=== PATIENT | female | born 1970 | race American Indian/Alaskan Native ===

== ENCOUNTER 2017-06-28 17:27 | Emergency (ER) | payer SELFPAY ==
[2017-06-28 17:46] VITALS: BP 136/84
--- NOTE | 2017-06-28 19:04 | Emergency Department Report ---
ED ENT HPI - General Chief complaint: Sore Throat Stated complaint: SORE THROAT Time Seen by Provider: 06/28/17 18:38 Source: patient Mode of arrival: Ambulatory Limitations: No Limitations - History of Present Illness Initial comments: This is a 46-year-old female nontoxic, well nourished in appearance, no acute signs of distress presents to the ED with c/o of foreign body sensation in her throat x3 weeks. Patient stated that at times she feels like her throat is closing. Patient denies any fever, chills, headache, stiff neck, nausea, vomiting, chest pain, shortness of breath, numbness or tingling. Patient denies any drooling or hoarseness. Patient stated allergies to PCN and lidocaine. PMH includes DM. MD complaint: sore throat -: week(s) (3) Location: throat Severity: mild Severity scale (0 -10): 8 Quality: aching Consistency: constant Improves with: none Worsens with: swallowing Associated Symptoms: pain with swallowing, sore throat. denies: fever, cough, gum swelling, toothache, tinnitus, hearing loss, discharge from ear, rhinorrhea - Related Data Previous Rx's Medication Instructions Recorded Last Taken Type Ibuprofen [Motrin] 600 mg PO Q8H PRN #30 tablet 06/28/17 Unknown Rx Allergies Allergy/AdvReac Type Severity Reaction Status Date / Time lidocaine Allergy Hives Verified 06/28/17 17:46 Penicillins Allergy Hives Verified 06/28/17 17:46 ED Dental HPI - General Chief complaint: Sore Throat Stated complaint: SORE THROAT Time Seen by Provider: 06/28/17 18:38 Source: patient Mode of arrival: Ambulatory Limitations: No Limitations - Related Data Previous Rx's Medication Instructions Recorded Last Taken Type Ibuprofen [Motrin] 600 mg PO Q8H PRN #30 tablet 06/28/17 Unknown Rx Allergies Allergy/AdvReac Type Severity Reaction Status Date / Time lidocaine Allergy Hives Verified 06/28/17 17:46 Penicillins Allergy Hives Verified 06/28/17 17:46 ED Review of Systems ROS: Stated complaint: SORE THROAT Other details as noted in HPI Constitutional: denies: chills, fever Eyes: denies: eye pain, eye discharge, vision change ENT: throat pain. denies: ear pain Respiratory: denies: cough, shortness of breath, wheezing Cardiovascular: denies: chest pain, palpitations Endocrine: no symptoms reported Gastrointestinal: denies: abdominal pain, nausea, diarrhea Genitourinary: denies: urgency, dysuria, discharge Musculoskeletal: denies: back pain, joint swelling, arthralgia Skin: denies: rash, lesions Neurological: denies: headache, weakness, paresthesias Psychiatric: denies: anxiety, depression Hematological/Lymphatic: denies: easy bleeding, easy bruising ED Past Medical Hx - Past Medical History Previous Medical History?: No Hx Diabetes: Yes - Surgical History Past Surgical History?: Yes Additional Surgical History: Hysterectomy 2011 - Social History Smoking Status: Never Smoker Substance Use Type: None - Medications Home Medications: Home Medications Medication Instructions Recorded Confirmed Last Taken Type Ibuprofen [Motrin] 600 mg PO Q8H PRN #30 tablet 06/28/17 Unknown Rx ED Physical Exam - General Limitations: No Limitations General appearance: alert, in no apparent distress - Head Head exam: Present: atraumatic, normocephalic - Eye Eye exam: Present: normal appearance Pupils: Present: normal accommodation - ENT ENT exam: Present: mucous membranes moist, TM's normal bilaterally, normal external ear exam - Expanded ENT Exam Expanded Ear exam: Present: normal external inspection Mouth exam: Present: normal external inspection, tongue normal. Absent: drooling, trismus, muffled voice, tongue elevation, laceration Teeth exam: Present: normal inspection Throat exam: Positive: tonsillar erythema, other (No foreign body noted. Uvula midline. No abscess or swelling noted.). Negative: tonsillomegaly, tonsillar exudate, R peritonsillar mass, L peritonsillar mass - Neck Neck exam: Present: normal inspection, full ROM. Absent: tenderness, meningismus, lymphadenopathy - Respiratory Respiratory exam: Present: normal lung sounds bilaterally. Absent: respiratory distress, wheezes, rales, rhonchi, stridor, chest wall tenderness, accessory muscle use, decreased breath sounds, prolonged expiratory - Cardiovascular Cardiovascular Exam: Present: regular rate, normal rhythm, normal heart sounds. Absent: bradycardia, tachycardia, irregular rhythm, systolic murmur, diastolic murmur, rubs, gallop - GI/Abdominal GI/Abdominal exam: Present: soft, normal bowel sounds - Extremities Exam Extremities exam: Present: normal inspection, full ROM, normal capillary refill - Back Exam Back exam: Present: normal inspection, full ROM - Neurological Exam Neurological exam: Present: alert, oriented X3, normal gait - Psychiatric Psychiatric exam: Present: normal affect, normal mood - Skin Skin exam: Present: warm, dry, intact, normal color. Absent: rash ED Course Vital Signs 06/28/17 17:42 Temperature 98.6 F Pulse Rate 87 Respiratory 16 Rate Blood Pressure 136/84 O2 Sat by Pulse 99 Oximetry - Reevaluation(s) Reevaluation #1: 06/28/17 19:06 Patient is speaking in full sentences with no signs of distress noted. ED Medical Decision Making - Medical Decision Making This is a 46-year-old female that presents with foreign body sensation. Patient is stable and was examined by me. Xray of neck soft tissue obtained to r/o foreign body and negative as per radiolgist. PAtient is notified of the xray results with no questions noted. No tonsillitis noted. Patient was instructed to Follow-up with a primary care doctor in 3-5 days or if symptoms worsen and continue return to emergency room as soon as possible. At time of discharge, the patient does not seem toxic or ill in appearance. No acute signs of distress noted. Patient agrees to discharge treatment plan of care. No further questions noted by the patient. Critical care attestation.: If time is entered above; I have spent that time in minutes in the direct care of this critically ill patient, excluding procedure time. ED Disposition Clinical Impression: Sore throat Disposition: DC-01 TO HOME OR SELFCARE Is pt being admited?: No Does the pt Need Aspirin: No Condition: Stable Additional Instructions: Follow-up with a primary care/ENT doctor in 3-5 days or if symptoms worsen and continue return to emergency room as soon as possible. Prescriptions: Ibuprofen [Motrin] 600 mg PO Q8H PRN #30 tablet PRN Reason: Pain Referrals: PRIMARY MD MELITA [Primary Care Provider] - 3-5 Days BEVERLEY NAVARRETE MD [Staff Physician] - 3-5 Days [facility] [Outside] - 3-5 Days [facility] [Outside] - 3-5 Days Forms: Work/School Release Form(ED)
--- NOTE | 2017-06-28 20:19 | XRay Report ---
FINAL REPORT EXAM: XR NECK SOFT TISSUE HISTORY: sore throat/ foreign body TECHNIQUE: Soft tissue neck PRIORS: None. FINDINGS: No evidence for pharyngeal distention. Epiglottis is not enlarged. The upper trachea is unremarkable. Prevertebral soft tissues are unremarkable. No radiopaque foreign body is identified. Noted are mild degenerative disc changes mid cervical spine. No evidence for subcutaneous emphysema. IMPRESSION: No radiopaque foreign body identified. Mild degenerative changes mid cervical spine
== END 2017-06-28 20:32 | disposition home or self-care (01) ==
LOC: ED 17:27
DX: J02.9 Acute pharyngitis, unspecified (principal); E11.9 Type 2 diabetes mellitus without complications; Z90.710 Acquired absence of both cervix and uterus; Z88.0 Allergy status to penicillin; Z88.4 Allergy status to anesthetic agent
CPT/HCPCS: 70360; 99283

== ENCOUNTER 2018-12-25 17:49 | Emergency (ER) | payer SELFPAY ==
--- NOTE | 2018-12-25 18:46 | Event Note ---
ED Screening Note Date of service: 12/25/18 Time: 18:42 ED Screening Note: This is a 48 y.o. F. that presents to the ER with epigastric abdominal pain for 1 week that is worsening. Reports nausea started 2 days ago. Denies fever, chills, vomiting, diarrhea. Reports pain is worse after eating. This initial assessment/diagnostic orders/clinical plan/treatment(s) is/are subject to change based on patients health status, clinical progression and re- assessment by fellow clinical providers in the ED. Further treatment and workup at subsequent clinical providers discretion. Patient/guardian urged not to elope from the ED as their condition may be serious if not clinically assessed and man aged. Initial orders include: Labs
[2018-12-25 19:11] LABS: Basophils # (Auto) 0.1 K/mm3 (0.0-0.1); Basophils % (Auto) 1.1 % (0.0-1.8); Eosinophils # (Auto) 0.1 K/mm3 (0.0-0.4); Hematocrit 40.8 % (30.3-42.9); Hemoglobin 13.5 gm/dl (10.1-14.3); Lymphocytes # (Auto) 2.1 K/mm3 (1.2-5.4); Lymphocytes % (Auto) 33.8 % (13.4-35.0); Mean Corpuscular HGB Conc 33 % (30-34); Mean Corpuscular Volume 84 fl (79-97); Monocytes # (Auto) 0.4 K/mm3 (0.0-0.8); Monocytes % (Auto) 6.7 % (0.0-7.3); Platelet Count 277 K/mm3 (140-440); Red Blood Count 4.84 M/mm3 (3.65-5.03); Red Cell Distribution Width 14.4 % (13.2-15.2)
[2018-12-25 19:47] LABS: Alanine Aminotransferase 15 units/L (7-56); Albumin 3.9 g/dL (3.9-5); BUN/Creatinine Ratio 9; Blood Urea Nitrogen 6 mg/dL (7-17); Calcium 9.1 mg/dL (8.4-10.2); Hemolysis Index 30
[2018-12-25 20:43] LABS: Bilirubin,Urine NEG (Negative); Blood,Urine NEG (Negative); Color,Urine Yellow (Yellow); Mucus,Urine 1+ /HPF; Protein,Urine <15 mg/dL mg/dL (Negative)
--- NOTE | 2018-12-25 21:37 | Emergency Department Report ---
ED Abdominal Pain HPI - General Chief Complaint: Abdominal Pain Stated Complaint: STOMACH PAIN/LFT LEG PAIN Time Seen by Provider: 12/25/18 18:42 Source: patient Mode of arrival: Ambulatory Limitations: No Limitations - History of Present Illness Initial Comments: 48-year-old female presents to the emergency room complaining of epigastric pain times one week. Patient reports the pain is worse when she eats. Patient admits to nausea that started a couple days denies any vomiting diarrhea or vaginal discharge. Patient does report her bowel movements are not as usual. Patient at the past medical history of hypertension diabetes. She does have a allergy to penicillin and lidocaine. Currently takes no medications has no primary care provider. She also complains of left thigh pain that feels like pain after you have a charley horse. Patient states that the pain comes at night when she sleeps. Pain is intermittent. MD Complaint: abdominal pain Onset/Timin -: week(s) Location: epigastric Radiation: none Migration to: no migration Severity scale (0 -10): 5 Quality: aching Consistency: constant Improves With: nothing Worsens With: eating Associated Symptoms: nausea. denies: vomiting, diarrhea, fever, chills, consti pation, dysuria, hematemesis, hematochezia, melena, hematuria, anorexia, syncope - Related Data Previous Rx's Medication Instructions Recorded Last Taken Type Ibuprofen [Motrin] 600 mg PO Q8H PRN #30 tablet 06/28/17 Unknown Rx raNITIdine HCl [Zantac] 150 mg PO BID #20 tablet 12/25/18 Unknown Rx Allergies Allergy/AdvReac Type Severity Reaction Status Date / Time lidocaine Allergy Hives Verified 06/28/17 17:46 Penicillins Allergy Hives Verified 06/28/17 17:46 ED Review of Systems ROS: Stated complaint: STOMACH PAIN/LFT LEG PAIN Other details as noted in HPI Comment: All other systems reviewed and negative ED Past Medical Hx - Past Medical History Previous Medical History?: Yes Hx Hypertension: Yes Hx Diabetes: Yes - Surgical History Past Surgical History?: Yes Additional Surgical History: Hysterectomy 2011 - Social History Smoking Status: Never Smoker Substance Use Type: None - Medications Home Medications: Home Medications Medication Instructions Recorded Confirmed Last Taken Type Ibuprofen [Motrin] 600 mg PO Q8H PRN #30 tablet 06/28/17 Unknown Rx raNITIdine HCl [Zantac] 150 mg PO BID #20 tablet 12/25/18 Unknown Rx ED Physical Exam - General Limitations: No Limitations General appearance: alert, in no apparent distress - Head Head exam: Present: atraumatic, normocephalic - Eye Eye exam: Present: normal appearance - ENT ENT exam: Present: mucous membranes moist - Neck Neck exam: Present: normal inspection - Respiratory Respiratory exam: Present: normal lung sounds bilaterally. Absent: respiratory distress - Cardiovascular Cardiovascular Exam: Present: regular rate, normal rhythm. Absent: systolic murmur, diastolic murmur, rubs, gallop - GI/Abdominal GI/Abdominal exam: Present: soft, tenderness (epigastric with deep palpation), normal bowel sounds. Absent: distended, guarding, rebound - Back Exam Back exam: Present: normal inspection - Neurological Exam Neurological exam: Present: alert, oriented X3 - Psychiatric Psychiatric exam: Present: normal affect, normal mood - Skin Skin exam: Present: warm, dry, intact, normal color. Absent: rash ED Course Vital Signs 12/25/18 18:42 Temperature 97.6 F Pulse Rate 66 Respiratory 18 Rate Blood Pressure 124/68 O2 Sat by Pulse 99 Oximetry ED Medical Decision Making - Lab Data Result diagrams: 12/25/18 18:56 12/25/18 18:56 Laboratory Tests 12/25/18 12/25/18 12/25/18 18:56 18:56 20:04 WBC 6.3 RBC 4.84 Hgb 13.5 Hct 40.8 MCV 84 MCH 28 MCHC 33 RDW 14.4 Plt Count 277 Lymph % (Auto) 33.8 [place] % (Auto) 6.7 Eos % (Auto) 1.0 Baso % (Auto) 1.1 Lymph # 2.1 [place] # 0.4 Eos # 0.1 Baso # 0.1 Seg Neutrophils % 57.4 Seg Neutrophils # 3.6 Sodium 137 Potassium 4.1 Chloride 101.5 Carbon Dioxide 24 Anion Gap 16 BUN 6 L Creatinine 0.7 Estimated GFR > 60 BUN/Creatinine Ratio 9 Glucose 91 Calcium 9.1 Total Bilirubin 0.20 AST 16 ALT 15 Alkaline Phosphatase 90 Total Protein 7.4 Albumin 3.9 Albumin/Globulin Ratio 1.1 Lipase 23 Urine Color Yellow Urine Turbidity Clear Urine pH 5.0 Ur Specific [place] 1.023 Urine Protein <15 mg/dl Urine Glucose (UA) Neg Urine Ketones Neg Urine Blood Neg Urine Nitrite Neg Urine Bilirubin Neg Urine Urobilinogen 2.0 Ur Leukocyte Esterase Neg Urine WBC (Auto) 1.0 Urine RBC (Auto) 1.0 U Epithel Cells (Auto) 2.0 Urine Mucus 1+ - Medical Decision Making 48-year-old female presents to the emergency room complaining of epigastric pain times one week. Patient reports the pain is worse when she eats. Patient admits to nausea that started a couple days denies any vomiting diarrhea or vaginal discharge. Patient does report her bowel movements are not as usual. Patient at the past medical history of hypertension diabetes. She does have a allergy to penicillin and lidocaine. Currently takes no medications has no primary care provider. She also complains of left thigh pain that feels like pain after you have a charley horse. Patient states that the pain comes at night when she sleeps. Pain is intermittent. Labs are stable. Patient will be given a GI cocktail. She is to follow up with GI specialist. Critical care attestation.: If time is entered above; I have spent that time in minutes in the direct care of this critically ill patient, excluding procedure time. ED Disposition Clinical Impression: Epigastric abdominal pain, Left thigh pain Disposition: DC-01 TO HOME OR SELFCARE Is pt being admited?: No Does the pt Need Aspirin: No Condition: Stable Instructions: Abdominal Pain (ED) Additional Instructions: Recommended to follow up with alignment mechanic I have listed their information below. He can also follow up with her primary care provider in regards to her left leg. Take [id number] Tylenol, ibuprofen or Aleve for pain management. Prescriptions: raNITIdine HCl [Zantac] 150 mg PO BID #20 tablet Referrals: ALLEN LAYNE MD [Primary Care Provider] - 3-5 Days [facility] [Provider Group] - 3-5 Days
[2018-12-25] MEDS ORDERED: diphenhydrAMINE 25 MG/10 ML ORAL LIQUID PO ONE (21:38)
[2018-12-25] MEDS ORDERED: ALUM-MAG HYDROXIDE-SIMETHICONE 200-200-20MG/5ML ORAL LIQD 30 ML PO ONE (21:38)
[2018-12-25 22:05] VITALS: BP 123/63
== END 2018-12-25 22:05 | disposition home or self-care (01) ==
LOC: ED 17:49
DX: R10.13 Epigastric pain (principal); M79.652 Pain in left thigh; I10 Essential (primary) hypertension; E11.9 Type 2 diabetes mellitus without complications
CPT/HCPCS: 36415; 80053; 81001; 83690; 85025; Q0163